=== PATIENT | male | born 1965 | race Caucasian/White ===

== ENCOUNTER 2016-05-28 11:32 | Emergency (ER) | payer SELFPAY ==
[~2016-05-28 11:32] MED LIST: DOXYCYCLINE HY100 M5 PO; OXYCODONE-ACET1 EAC3 PO
[2016-05-28] MEDS ORDERED: ZITHROMAX250 M1 PO (12:26)
== END 2016-05-28 12:37 ==
LOC: EDMED 11:32
PROC: 0HQFXZZ Repair Right Hand Skin, External Approach (ICD-10-PCS; principal; 2016-05-28)
DX: S61.011A Laceration without foreign body of right thumb without damage to nail, initial encounter (principal); W29.3XXA Contact with powered garden and outdoor hand tools and machinery, initial encounter; Y92.009 Unspecified place in unspecified non-institutional (private) residence as the place of occurrence of the external cause